=== PATIENT | female | born 1950 | race Caucasian/White ===

== ENCOUNTER → 2016-12-13 | Outpatient (CLI) | payer MEDICARE, BC | END | disposition home or self-care (01) | LOC: PCVCCLINIC 11:35 | PROVIDERS: ATTEND Internal Medicine Cardiovascular Disease | DX: I70.1 Atherosclerosis of renal artery (principal); I10 Essential (primary) hypertension; I44.7 Left bundle-branch block, unspecified; E78.00 Pure hypercholesterolemia, unspecified; I65.23 Occlusion and stenosis of bilateral carotid arteries; Z87.891 Personal history of nicotine dependence; Z79.899 Other long term (current) drug therapy; Z79.82 Long term (current) use of aspirin | CPT/HCPCS: 93005; G0463 ==

== ENCOUNTER → 2017-01-10 | Outpatient (CLI) | payer MEDICARE, BC ==
--- NOTE | 2017-01-10 10:38 | PCVCIMAG ---
EXAM: BILATERAL CAROTID DUPLEX INDICATION: Carotid Occlusive Disease. FINDINGS: Doppler Measurements (centimeters per second): RIGHT: Peak CCA-93, Peak ECA-81, Diastolic ICA-21, Peak ICA-91, ICA/CCA Ratio-1.0. LEFT: Peak CCA-93, Peak ECA-51, Diastolic ICA-26, Peak ICA-81, ICA/CCA Ratio-1.0. RIGHT CAROTID: The carotid bulb has moderate plaque. The proximal internal carotid artery shows <40% stenosis. The common carotid artery shows no significant stenosis. The external carotid artery shows no significant stenosis. LEFT CAROTID: The carotid bulb has mild plaque. The proximal internal carotid artery shows <40% stenosis. The common carotid artery shows no significant stenosis. The external carotid artery shows no significant stenosis. Antegrade flow in both vertebral arteries. IMPRESSION: <40% stenosis of the right internal carotid artery with moderate plaque. <40% stenosis of the left internal carotid artery with mild plaque. LOC:[place] [id number]
--- NOTE | 2017-01-10 12:25 | PCVCIMAG ---
APPROVED REPORT Exam: Stress Echocardiogram Indication: LBBB, HTN, Hyperlipidemia Patient Location: Echo lab Stress Nurse: Kasandra Jackson RN Status: routine Ht: 5 ft 0 in HR: 88 bpm BP: 140/70 mmHg Rhythm: LBBB Procedure The patient underwent an Exercise Stress Test using the Hamzah Protocol. Blood pressure, heart rate, and EKG were monitored. An Echocardiogram was performed by environmental science technician in four stages in quad fashion. At peak stress, four selected images were obtained and placed side by side with resting images for comparison. Stress Test Details Stress Test: Exercise stress testing was performed using a Hamzah protocol. HR Resting HR: 88 bpmMax Heart Rate (APMHR): 152 bpm Max HR Achieved: 133 bpmTarget HR (85% APMHR): 129 bpm % of APMHR: 87 HR response to stress: Normal HR response to stress BP Resting BP: 140/70 mmHg Max BP: 200/70 mmHg ECG Resting ECG: LBBB Stress ECG: LBBB Clinical Reason for Termination: Maximal effort Exercise duration: 6 min 30 sec Highest Stage Achieved: Stage 3: 3.4 mph at 14% grade. Exercise capacity: 8.50 METs Overall Exercise Capacity for Age: Normal Pre-Stress Echo The resting Echocardiogram showed normal left ventricular contractility with an estimated Ejection Fraction of about 50-55%. Normal wall motion in all segments on baseline images. Post-Stress Echo The stress Echocardiogram showed normal left ventricular contractility with an estimated Ejection Fraction of about 55-60%. Normal augmentation of wall motion in all segments on post stress images. Clinical No clinical or ECG evidence for ischemia. Conclusion Clinical Response: Non-ischemic Exercise Capacity: Average Stress ECG Response: Non-ischemic Stress Echo Images: Non-ischemic The left ventricle is normal in size and wall thickness in both the rest and stress images. Other Information Study Quality: Good <Conclusion> The left ventricle is normal in size and wall thickness in both the rest and stress images.
--- NOTE | 2017-01-10 12:57 | PCVCIMAG ---
EXAM: BILATERAL RENAL ULTRASOUND AND BILATERAL RENAL DUPLEX INDICATION: Hypertension FINDINGS: Right kidney: Length measures 10.5 cm. No hydronephrosis or extensive renal scarring. 1.5 cm benign cyst upper pole. Right renal duplex: Adequate technical quality. 70% proximal renal artery stenosis. The aortic to renal artery ratio is 3.0. The renal vein is patent. Left kidney: Length measures 10.7 cm. No hydronephrosis or extensive renal scarring. 2.9 cm benign cyst lower pole. Left renal duplex: Adequate technical quality. No sonographic evidence of renal artery stenosis. The aortic to renal artery ratio is 2.2. The renal vein is patent. Bladder: No obvious abnormalities. IMPRESSION: 70% stenosis proximal right renal artery has worsened since April 2013. No significant left renal artery stenosis. LOC:[id number]
== END | disposition home or self-care (01) ==
LOC: PCVCIMAG 07:58
PROVIDERS: ATTEND Internal Medicine Cardiovascular Disease
DX: I65.23 Occlusion and stenosis of bilateral carotid arteries (principal); N28.1 Cyst of kidney, acquired; I70.1 Atherosclerosis of renal artery; I10 Essential (primary) hypertension; E78.5 Hyperlipidemia, unspecified; I44.7 Left bundle-branch block, unspecified
CPT/HCPCS: 76770; 93325; 93351; 93880; 93975

== ENCOUNTER → 2017-10-02 | Outpatient (CLI) | payer MEDICARE, BC | END | disposition home or self-care (01) | LOC: PCVCCLINIC 13:14 | DX: I70.1 Atherosclerosis of renal artery (principal); I10 Essential (primary) hypertension; I44.7 Left bundle-branch block, unspecified; E78.00 Pure hypercholesterolemia, unspecified; I77.9 Disorder of arteries and arterioles, unspecified; Z88.8 Allergy status to other drugs, medicaments and biological substances | CPT/HCPCS: 93005; G0463 ==

== ENCOUNTER → 2018-06-10 | Outpatient (CLI) | payer MEDICARE, BC ==
--- NOTE | 2018-06-10 15:50 | PCVCIMAG ---
EXAM: BILATERAL RENAL ULTRASOUND AND BILATERAL RENAL DUPLEX INDICATION: Hypertension FINDINGS: Right kidney: Length measures 9.9 cm. No hydronephrosis or extensive renal scarring. 1.3 x 1.7 x 1.8 cm benign cyst upper pole medially. 1.0 cm benign cyst lower pole. Right renal duplex: Adequate technical quality. 50% proximal renal artery stenosis. The aortic to renal artery ratio is 2.5. The renal vein is patent. Left kidney: Length measures 10.0 cm. No hydronephrosis or extensive renal scarring. 2.1 x 2.1 x 2.2 cm benign cyst midpole medially. Left renal duplex: Adequate technical quality. 50-60% proximal/mid renal artery stenosis. The aortic to renal artery ratio is 3.9. The renal vein is patent. Bladder: No obvious abnormalities. IMPRESSION: 50% proximal right renal artery stenosis is less severe than prior study dated December 2016. 50-60% stenosis proximal/mid left renal artery may have increased since prior study. LOC:[id number]
== END | disposition home or self-care (01) ==
LOC: PCVCIMAG 09:02
PROVIDERS: ATTEND Internal Medicine Cardiovascular Disease
DX: I70.1 Atherosclerosis of renal artery (principal); I10 Essential (primary) hypertension
CPT/HCPCS: 76770; 93975

== ENCOUNTER → 2019-01-06 | Outpatient (CLI) | payer MEDICARE, BC ==
--- NOTE | 2019-01-06 11:40 | PCVCIMAG ---
APPROVED REPORT Study performed: 01/06/2019 10:12:32 Exam: Stress Echocardiogram Indication: Hyperlipidemia, Hypertension Stress Nurse: Kasandra Jackson RN Status: routine Ht: 5 ft 0 in HR: 75 bpm BP: 128/60 mmHg Rhythm: LBBB Medical History Medical History: LBBB Procedure The patient underwent an Exercise Stress Test using the Hamzah Protocol. Blood pressure, heart rate, and EKG were monitored. An Echocardiogram was performed by technician assistant in four stages in quad fashion. At peak stress, four selected images were obtained and placed side by side with resting images for comparison. Stress Test Details Stress Test: Exercise stress testing was performed using a Hamzah protocol. HR Resting HR: 75 bpmMax Heart Rate (APMHR): 150 bpm Max HR Achieved: 133 bpmTarget HR (85% APMHR): 127 bpm % of APMHR: 88 Recovery HR: 75 bpm HR response to stress: Normal HR response to stress BP Resting BP: 128/60 mmHg Max BP: 184/60 mmHg Recovery BP: 142/66 mmHg BP response to stress: Normal blood pressure response to stress. ECG Resting ECG: Sinus Rhythm, LBBB Stress ECG: Sinus Rhythm, LBBB Recovery ECG: Sinus Rhythm, LBBB Clinical Reason for Termination: Maximal effort Exercise duration: 7 min sec Highest Stage Achieved: Stage 2: 2.5 mph at 12% grade. Exercise capacity: 10.10 METs Overall Exercise Capacity for Age: Normal Pre-Stress Echo The resting Echocardiogram showed normal left ventricular contractility with an estimated Ejection Fraction of about 55-60%. Normal wall motion in all segments on baseline images. Post-Stress Echo The stress Echocardiogram showed normal left ventricular contractility with an estimated Ejection Fraction of about 60-65%. Normal augmentation of wall motion in all segments on post stress images. Clinical No clinical or ECG evidence for ischemia. Conclusion Clinical Response: Non-ischemic Exercise Capacity: Average Stress ECG Response: Non-ischemic Stress Echo Images: Non-ischemic Trace Tricuspid regurgitation. Pulmonary artery pressure is 32mmHg. Other Information Study Quality: Good <Conclusion> Trace Tricuspid regurgitation. Pulmonary artery pressure is 32mmHg.
== END | disposition home or self-care (01) ==
LOC: PCVCIMAG 10:00
PROVIDERS: ATTEND Internal Medicine Cardiovascular Disease
DX: I10 Essential (primary) hypertension (principal); E78.5 Hyperlipidemia, unspecified
CPT/HCPCS: 93325; 93351